=== PATIENT | male | born 1990 | race Caucasian/White ===

== ENCOUNTER 2023-02-10 16:43 | Emergency (ER) | payer MEDICAID | END 2023-02-10 17:47 | disposition home or self-care (01) | LOC: JP.ED 16:43 | DX: S80.862A Insect bite (nonvenomous), left lower leg, initial encounter (principal); K21.9 Gastro-esophageal reflux disease without esophagitis; F17.210 Nicotine dependence, cigarettes, uncomplicated; Z79.899 Other long term (current) drug therapy; W57.XXXA Bitten or stung by nonvenomous insect and other nonvenomous arthropods, initial encounter | CPT/HCPCS: 99281 ==